=== PATIENT | female | born 2000 | race Native Hawaiian/Other Pacific Islander ===

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

== ENCOUNTER → 2020-04-05 | Outpatient (CLI) | payer OTHER, SELFPAY ==
[~2020-04-05] MED LIST changes: +ACET-683 PO; +MACR100C43 PO
[2020-04-05 13:18] LABS: HEMATOCRIT 43.2 % (36.0-47.0); MEAN CORPUSCULAR HEMOGLOBIN 28.7 pg (27.0-33.0); MEAN CORPUSCULAR HGB CONC 32.4 g/dl (32.0-36.5); MEAN CORPUSCULAR VOLUME 88.7 fl (80.0-96.0); PLATELET COUNT, AUTOMATED 279 10^3/uL (150-450); RED BLOOD COUNT 4.87 10^6/uL (4.00-5.40); WHITE BLOOD COUNT 6.5 10^3/uL (4.0-10.0)
[2020-04-05 13:36] LABS: HEMOGLOBIN A1c 5.4 %
[2020-04-05 14:42] LABS: ALBUMIN 3.7 GM/DL (3.2-5.2); ALT/SGPT 30 U/L (12-78); BILIRUBIN,TOTAL 0.4 MG/DL (0.2-1.0); BLOOD UREA NITROGEN 7 MG/DL (7-18); CARBON DIOXIDE LEVEL 23 MEQ/L (21-32); CHLORIDE LEVEL 105 MEQ/L (98-107); CHOLESTEROL LEVEL 151 MG/DL (<200); CREATININE FOR GFR 0.55 MG/DL (0.55-1.30); FREE T4 1.08 NG/DL (0.78-1.33); GLUCOSE, FASTING 81 MG/DL (70-100); HDL CHOLESTEROL 50 MG/DL (>40); LDL CHOLESTEROL 87 MG/DL (<100); NON-HDL-C 101 MG/DL; POTASSIUM SERUM 4.2 MEQ/L (3.5-5.1); SODIUM LEVEL 136 MEQ/L (136-145); TOTAL PROTEIN 7.4 GM/DL (6.4-8.2); TRIGLYCERIDES LEVEL 72 MG/DL (<150)
[2020-04-05 15:36] LABS: TOTAL 25(OH) VITAMIN D 27.2 NG/ML (30.0-100.0)
== END ==
LOC: M WUC 09:33
PROVIDERS: ATTEND Nurse Practitioner Family
DX: Z00.00 Encounter for general adult medical examination without abnormal findings (principal); Z83.3 Family history of diabetes mellitus; Z13.0 Encounter for screening for diseases of the blood and blood-forming organs and certain disorders involving the immune mechanism; Z83.49 Family history of other endocrine, nutritional and metabolic diseases

== ENCOUNTER 2020-05-10 11:04 | Emergency (ER) | payer OTHER, SELFPAY ==
[~2020-05-10] VITALS: Ht 157.5 cm; Wt 80.5 kg
[2020-05-10] MEDS ORDERED: NITROFURANTOIN (MACROBID) 100 MG CAP PO ONE (13:15)
[2020-05-10] MEDS ORDERED: PHENAZOPYRIDINE 100 MG TAB PO ONE (13:15)
[2020-05-10] MEDS ORDERED: MACR100C43 PO (13:16)
[2020-05-10] MEDS ORDERED: PYRI1TAB5 PO (13:16)
[2020-05-10 13:35] VITALS: BP 131/68
[2020-05-10 15:14] LABS: CHLAMYDIA DNA AMPLIFICATION NEGATIVE (NEGATIVE); GC DNA AMPLIFICATION NEGATIVE (NEGATIVE)
== END 2020-05-10 13:37 | disposition home or self-care (01) ==
LOC: M ED 11:04
DX: N39.0 Urinary tract infection, site not specified (principal); Z88.8 Allergy status to other drugs, medicaments and biological substances; Z88.1 Allergy status to other antibiotic agents

== ENCOUNTER 2020-11-22 04:32 | Emergency (ER) | payer OTHER ==
[~2020-11-22] VITALS: Ht 157.5 cm; Wt 84.0 kg
[~2020-11-22 04:32] MED LIST changes: +PYRI1TAB5 PO
[2020-11-22 05:48] LABS: APPEARANCE, URINE CLEAR (CLEAR); BACTERIA, URINE AUTO NEGATIVE (NEGATIVE); BILIRUBIN, URINE AUTO NEGATIVE (NEGATIVE); BLOOD, URINE BLOOD 3+ (NEGATIVE); COLOR, URINE COLORLESS (YELLOW); GLUCOSE, URINE (UA) AUTO NEGATIVE (NEGATIVE); KETONE, URINE AUTO NEGATIVE (NEGATIVE); LEUKOCYTE ESTERASE, URINE AUTO TRACE (NEGATIVE); NITRITE, URINE AUTO NEGATIVE (NEGATIVE); PROTEIN, URINE AUTO NEGATIVE (NEGATIVE); RBC, URINE AUTO 0 /HPF (0-3); SQUAMOUS EPITHELIAL CELL UR AU 0 /HPF (0-6); UROBILINOGEN, URINE AUTO 0.2 mg/dL (0.0-2.0); WBC, URINE AUTO 0 /HPF (0-3)
--- NOTE | 2020-11-22 06:27 | REPVR ---
PROCEDURE INFORMATION: Exam: US First Trimester, Transabdominal Exam date and time: 11/22/2020 5:28 AM Age: 20 years old Clinical indication: Lmp or gestational age (in weeks): 12wks; Other: Vag bleeding; ; Additional info: Vaginal bleeding TECHNIQUE: Imaging protocol: Real-time transabdominal obstetrical ultrasound of the maternal pelvis and a first trimester , less than 14 weeks 0 days, with image documentation. COMPARISON: No relevant prior studies available. FINDINGS: Gestation: Intrauterine gestational sac is seen with pole detected with crown-rump length 5.9 cm corresponding to 12 weeks and 3 days gestation. Embryonic/ heart rate: heart rate is detected at 165 beats per minutes. Extra-embryonic membranes/Placenta: Anterior grade 0 placenta is noted. Placenta previa is noted. Amniotic fluid: Amniotic fluid is normal for gestational age. BIOMETRY: Gestational age (AUA): 12 weeks and 3 days gestation by CRL. MATERNAL: Uterus: Unremarkable. Cervix: Unremarkable. Right adnexa: The right ovary and adnexa are obscured. Left adnexa: The left ovary and adnexa are obscured. Intraperitoneal space: No intraperitoneal free fluid. IMPRESSION: 1. Single live IUP corresponding to 12 weeks and 3 days gestation by CRL. 2. Placenta previa noted with no retroplacental hemorrhage or abruption. The previa is likely due to early . Follow-up is suggested. Electronically signed by: Renzo Rm On 11/22/2020 06:26:08 AM
[2020-11-22 07:00] VITALS: BP 117/72
== END 2020-11-22 07:02 | disposition home or self-care (01) ==
LOC: M ED 04:32
DX: O44.21 Partial placenta previa NOS or without hemorrhage, first trimester (principal); Z3A.12 12 weeks gestation of pregnancy; O26.852 Spotting complicating pregnancy, second trimester; Z88.6 Allergy status to analgesic agent; Z88.8 Allergy status to other drugs, medicaments and biological substances

== ENCOUNTER → 2020-12-03 | Outpatient (CLI) | payer OTHER ==
[2020-12-03 14:14] LABS: HEMATOCRIT 39.4 % (36.0-47.0); HEMOGLOBIN 13.4 g/dl (12.0-15.5); MEAN CORPUSCULAR HEMOGLOBIN 30.3 pg (27.0-33.0); MEAN CORPUSCULAR VOLUME 89.1 fl (80.0-96.0); PLATELET COUNT, AUTOMATED 273 10^3/uL (150-450); RED BLOOD COUNT 4.42 10^6/uL (4.00-5.40); WHITE BLOOD COUNT 7.4 10^3/uL (4.0-10.0)
[2020-12-03 14:44] LABS: HEMOGLOBIN A1c 5.1 %
[2020-12-03 15:02] LABS: FREE T4 0.95 NG/DL (0.78-1.33)
[2020-12-03 15:38] LABS: HEPATITIS C VIRUS ABY INDEX 0.1 INDEX (<0.8)
[2020-12-03 15:39] LABS: HIV 1&2 SCREEN CENTAUR NEGATIVE (NEGATIVE)
[2020-12-03 15:44] LABS: GC DNA AMPLIFICATION NEGATIVE (NEGATIVE)
== END ==
LOC: EEVIPCON 11:15 → M WUC 11:15
PROVIDERS: ATTEND Advanced Practice Midwife
DX: Z34.91 Encounter for supervision of normal pregnancy, unspecified, first trimester (principal); Z3A.08 8 weeks gestation of pregnancy

== ENCOUNTER → 2021-01-02 | Outpatient (REF) | payer OTHER | LOC: M SFHCWAGY 12:59 | PROVIDERS: ATTEND Advanced Practice Midwife | DX: Z34.82 Encounter for supervision of other normal pregnancy, second trimester (principal) ==

== ENCOUNTER → 2021-01-30 | Outpatient (CLI) | payer OTHER ==
--- NOTE | 2021-01-30 11:20 | REP ---
INDICATION: ANATOMY COMPARISON: 11/22/2020 TECHNIQUE: Transabdominal obstetrical ultrasound with color Doppler evaluation. FINDINGS: Examination demonstrates a single live intrauterine in variable presentation. motion is identified by technologist. Placenta is noted anterior and grade 0 without evidence for placenta previa or abruption. Amniotic fluid volume is normal. Cervix measures 3.4 cm in length and appears closed.. Selected gestational age: 20 weeks 6 days with MAE 06/13/2021. Gestational age by current measurements 21 weeks 4 days with MAE 06/08/2021. FHR equals 165 beats per minute. BPD: 5.3 cm at 22 weeks 2 days HC: 19.7 cm at 21 weeks 6 days AC: 16.2 cm at 21 weeks 2 days FL: 3.5 cm at 21 weeks 0 days HL: 3.3 cm at 21 weeks 2 days HC/AC: 1.22 Estimated weight 412 grams (68thpercentile). Anatomical assessment demonstrates normal structures including cranium, choroid plexus, cavum, cerebellum/posterior fossa, lungs, diaphragm, stomach, cord insertion/three-vessel cord, kidneys/bladder, spine, and extremities. Limited evaluation of the facial profile and heart/ventricular outflow tracts due to positioning. IMPRESSION: Single live intrauterine in transverse lie demonstrating appropriate interval growth and estimated weight. Anatomical limitations as noted above warrant re-evaluation and follow-up. <Electronically signed by Brandon Antunez > 01/30/21 [id number]
== END ==
LOC: M WHC 10:05
PROVIDERS: ATTEND Advanced Practice Midwife
DX: Z34.82 Encounter for supervision of other normal pregnancy, second trimester (principal); Z3A.16 16 weeks gestation of pregnancy

== ENCOUNTER → 2021-02-14 | Outpatient (CLI) | payer OTHER | LOC: M PLALAB 08:40 | PROVIDERS: ATTEND Advanced Practice Midwife | DX: Z34.82 Encounter for supervision of other normal pregnancy, second trimester (principal); Z3A.00 Weeks of gestation of pregnancy not specified ==

== ENCOUNTER → 2021-02-27 | Outpatient (CLI) | payer OTHER ==
--- NOTE | 2021-02-27 08:15 | REP ---
INDICATION: F/U ANATOMY R/O VASA PREVIA COMPARISON: 01/30/2021 TECHNIQUE: Transabdominal obstetrical ultrasound with color Doppler evaluation. FINDINGS: Examination demonstrates a single live intrauterine in breech presentation. motion is identified by technologist. Placenta is noted anterior and grade 1 without evidence for placenta previa or abruption. Amniotic fluid volume is normal. Cervix measures 3.7 cm in length and appears closed.. Selected gestational age: 24 weeks 6 days with MAE 06/13/2021. Gestational age by current measurements 25 weeks 5 days with MAE 06/07/2021. FHR equals 155 beats per minute. Estimated weight 823 grams (68thpercentile). Anatomical assessment demonstrates normal structures including cranium facial profile, four-chamber heart and cardiac ventricular outflow tracts. IMPRESSION: Single live intrauterine in breech presentation demonstrating appropriate estimated weight. In conjunction with prior examination anatomical assessment is complete and normal. <Electronically signed by Brandon Antunez > 02/27/21 [id number]
== END ==
LOC: M WHC 07:10
PROVIDERS: ATTEND Advanced Practice Midwife
DX: Z34.92 Encounter for supervision of normal pregnancy, unspecified, second trimester (principal); Z3A.24 24 weeks gestation of pregnancy

== ENCOUNTER → 2021-02-27 | Outpatient (REF) | payer OTHER | LOC: M SFHCWAGY 13:17 | PROVIDERS: ATTEND Specialist | DX: N39.0 Urinary tract infection, site not specified (principal) ==

== ENCOUNTER → 2021-03-27 | Outpatient (REF) | payer OTHER | LOC: M SFHCWAGY 13:06 | PROVIDERS: ATTEND Specialist | DX: N39.0 Urinary tract infection, site not specified (principal) ==

== ENCOUNTER → 2021-04-10 | Outpatient (CLI) | payer OTHER ==
[2021-04-10 13:40] LABS: HEMATOCRIT 36.7 % (36.0-47.0); HEMOGLOBIN 12.2 g/dl (12.0-15.5); MEAN CORPUSCULAR HEMOGLOBIN 29.9 pg (27.0-33.0); MEAN CORPUSCULAR HGB CONC 33.2 g/dl (32.0-36.5); PLATELET COUNT, AUTOMATED 272 10^3/uL (150-450); RED BLOOD COUNT 4.08 10^6/uL (4.00-5.40); WHITE BLOOD COUNT 10.6 10^3/uL (4.0-10.0)
[2021-04-10 15:38] LABS: GC DNA AMPLIFICATION NEGATIVE (NEGATIVE)
== END ==
LOC: M PLALAB 09:34
PROVIDERS: ATTEND Specialist
DX: Z34.82 Encounter for supervision of other normal pregnancy, second trimester (principal)

== ENCOUNTER 2021-04-15 12:36 | Outpatient (CLI) | payer OTHER ==
[~2021-04-15] VITALS: Ht 157.5 cm; Wt 85.5 kg
[2021-04-15] MEDS ORDERED: GENTAMICIN 425 MG in D5W 100 ML IV ONE (13:00)
[2021-04-15 13:14] VITALS: BP 133/73
[2021-04-15 15:00] VITALS: BP 128/59
== END 2021-04-15 15:05 | disposition home or self-care (01) ==
LOC: M INFU 12:36
PROVIDERS: ATTEND Advanced Practice Midwife
DX: N10 Acute pyelonephritis (principal)
CPT/HCPCS: 96365; J1580

== ENCOUNTER 2021-04-16 13:15 | Outpatient (CLI) | payer OTHER ==
[~2021-04-16] VITALS: Ht 160 cm; Wt 85.5 kg
[~2021-04-16 13:15] MED LIST changes: +GENTAMICIN 425 MG in D5W 100 ML IV ONE
[2021-04-16 13:43] VITALS: BP 128/58
== END 2021-04-16 15:00 | disposition home or self-care (01) ==
LOC: M INFU 13:15
PROVIDERS: ATTEND Advanced Practice Midwife
DX: N10 Acute pyelonephritis (principal); Z88.1 Allergy status to other antibiotic agents
CPT/HCPCS: 96365; J1580

== ENCOUNTER → 2021-04-29 | Outpatient (REF) | payer OTHER ==
[~2021-04-29] MED LIST changes: -GENTAMICIN 425 MG in D5W 100 ML IV ONE; +IBUP-1022 PO; +PERCOCET PO; +STUACAP PO
== END ==
LOC: M SFHCWAGY 15:25
PROVIDERS: ATTEND Obstetrics & Gynecology
DX: R82.71 Bacteriuria (principal)

== ENCOUNTER → 2021-05-21 | Outpatient (REF) | payer OTHER ==
[~2021-05-21] MED LIST changes: -IBUP-1022 PO; -PERCOCET PO; -STUACAP PO
== END ==
LOC: M SFHCWAGY 12:43
PROVIDERS: ATTEND Advanced Practice Midwife
DX: Z34.83 Encounter for supervision of other normal pregnancy, third trimester (principal); Z3A.00 Weeks of gestation of pregnancy not specified

== ENCOUNTER 2021-06-20 09:43 | Inpatient (IN) | payer OTHER ==
[2021-06-20] VITALS (29 sets, daily range): BP systolic 108–144; BP diastolic 60–95
[~2021-06-20] VITALS: Ht 160 cm; Wt 93.9 kg
[2021-06-20] MEDS ORDERED: STUACAP PO (10:06)
[2021-06-20] MEDS ORDERED: HOME MED LIST COMPLETE! XX SCH (10:10)
[2021-06-20] MEDS ORDERED: METHYLERGONOVINE MALEATE 0.2 MG/ML VIAL (J2210) IM PRN (10:25)
[2021-06-20] MEDS ORDERED: LACTATED RINGER'S 1000 ML IV STA (10:25)
[2021-06-20] MEDS ORDERED: TRANEXAMIC ACID INJection 1,000 MG in NS 100 ML IV PRN (10:25)
[2021-06-20] MEDS ORDERED: CARBOPROST TROMETHAMINE 250 MCG/ML AMP IM PRN (10:25)
[2021-06-20] MEDS ORDERED: OXYTOCIN DRIP 30 UNITS in IV 1 EA IV PRN ×4 (10:25)
[2021-06-20] MEDS ORDERED: OXYTOCIN DRIP 30 UNITS in IV 1 EA IV SCH (10:25)
[2021-06-20 11:14] LABS: HEMATOCRIT 35.6 % (36.0-47.0); HEMOGLOBIN 11.8 g/dl (12.0-15.5); MEAN CORPUSCULAR HEMOGLOBIN 28.7 pg (27.0-33.0); MEAN CORPUSCULAR HGB CONC 33.1 g/dl (32.0-36.5); MEAN CORPUSCULAR VOLUME 86.6 fl (80.0-96.0); PLATELET COUNT, AUTOMATED 232 10^3/uL (150-450); RED BLOOD COUNT 4.11 10^6/uL (4.00-5.40); WHITE BLOOD COUNT 8.8 10^3/uL (4.0-10.0)
[2021-06-20 11:41] LABS: ALT/SGPT 14 U/L (12-78); BILIRUBIN,TOTAL 0.1 MG/DL (0.2-1.0); CREATININE FOR GFR 0.42 MG/DL (0.55-1.30); GLOMERULAR FILTRATION RATE > 60.0 (>60); LDH LACTATE DEHYDROGENASE 148 U/L (84-246); URIC ACID 4.6 MG/DL (2.6-6.0)
[2021-06-20] MEDS: LR 1,000 ML IV SCH ×3 (14:23→20:31)
[2021-06-20] MEDS ORDERED: FENTANYL 2MCG/ML ROPIVACAINE 0.2% IN 0.9% NACL 100ML IVBAG As Ordered ONE (19:18)
[2021-06-20] MEDS ORDERED: EPIDURAL/PCA KEYS XX PRN (20:15)
[2021-06-20] MEDS ORDERED: diphenhydrAMINE 50MG/ML VIAL (J1200) IV PRN (20:15)
[2021-06-20] MEDS ORDERED: NALOXONE INJ 0.4MG/1ML VIAL (J2310 PER 1MG) IV PRN (20:15)
[2021-06-20] MEDS ORDERED: ePHEDrine SULFATE 25 MG/5 ML(5MG/ML) SYRINGE IV PRN (20:15)
[2021-06-20] MEDS ORDERED: ONDANSETRON 4MG/2ML VIAL IV PRN (20:15)
[2021-06-20] MEDS ORDERED: EPIDURAL COMMENT XX SCH (20:15)
[2021-06-20] MEDS ORDERED: LACTATED RINGER'S 1000 ML IV PRN (20:15)
[2021-06-20] MEDS ORDERED: REFRIGERATOR IV KEYS XX PRN (20:15)
[2021-06-20] MEDS ORDERED: FENTANYL/ROPIVACAINE/NACL BAG 100 ML EPIDURAL SCH (20:15)
[2021-06-20] MEDS ORDERED: BICITRA 30ML SOLN UDC As Ordered ONE (23:31)
[2021-06-20] MEDS ORDERED: ceFAZolin 2 GM/D5W 50 ML IV BAG (J0690 PER 500MG) As Ordered ONE (23:32)
[2021-06-20] MEDS ORDERED: AZITHROMYCIN INJ 500MG VIAL As Ordered ONE (23:36)
[2021-06-21] VITALS (29 sets, daily range): BP systolic 97–150; BP diastolic 48–96
[2021-06-21] MEDS ORDERED: CLINDAMYCIN 900 MG in IV 1 EA IV ONE ×2
[2021-06-21] MEDS ORDERED: GENTAMICIN 400 MG in D5W 100 ML IV ONE ×2
[2021-06-21] MEDS ORDERED: OXYTOCIN 30 UNITS IN 0.9% NaCl 500ML IV BAG (J2590) As Ordered ONE ×3 (00:29→01:34)
[2021-06-21] MEDS ORDERED: KETOROLAC 60MG 2ML VIAL As Ordered ONE (00:29)
[2021-06-21] MEDS ORDERED: MORPHINE PRES-FREE INJ 10 MG/10 ML VIAL (J2274) As Ordered ONE (00:29)
[2021-06-21] MEDS ORDERED: SODIUM BICARBONATE 8.4% INJ 50MEQ 50 ML VIAL As Ordered ONE (00:29)
[2021-06-21] MEDS ORDERED: ONDANSETRON 4MG/2ML VIAL As Ordered ONE ×2 (00:29→01:20)
[2021-06-21] MEDS ORDERED: LIDOCAINE 2% W/EPINEPHRINE 20ML VIAL **PRES FREE As Ordered ONE (00:29)
[2021-06-21] MEDS ORDERED: ACETAMINOPHEN 1000MG 100ML IV BTL (OFIRMEV) (J0131 PER 10MG) As Ordered ONE (00:29)
[2021-06-21] MEDS ORDERED: dexameTHASONE 4 MG/ML 1ML VIAL (J1100 PER 1MG) As Ordered ONE (00:29)
[2021-06-21] MEDS ORDERED: PHENYLephrine 500MCG 5ML (100MCG/ML) SYRINGE As Ordered ONE (00:38)
[2021-06-21] MEDS ORDERED: PHENYLEPHRINE 10MG/ML 1ML VIAL (J2370 PER 1) As Ordered ONE (00:56)
[2021-06-21] MEDS ORDERED: ONDANSETRON 4MG/2ML VIAL IV PRN ×3 (01:15→02:05)
[2021-06-21] MEDS ORDERED: METOCLOPRAMIDE INJ 10MG/2ML VIAL (J2765 PER 1) IV PRN (01:15)
[2021-06-21] MEDS ORDERED: NALOXONE INJ 0.4MG/1ML VIAL (J2310 PER 1MG) IV PRN ×3 (01:15→02:05)
[2021-06-21] MEDS ORDERED: diphenhydrAMINE 50MG/ML VIAL (J1200) IV PRN ×2 (01:15→02:05)
[2021-06-21] MEDS ORDERED: NALBUPHINE HCL 10 MG/ML AMP (J2300) IV PRN (01:15)
[2021-06-21] MEDS ORDERED: METOCLOPRAMIDE INJ 10MG/2ML VIAL (J2765 PER 1) As Ordered ONE (01:19)
[2021-06-21] MEDS ORDERED: fentaNYL 100 MCG/2 ML INJECTION (J3010) IV PRN (01:45)
[2021-06-21] MEDS ORDERED: LR 1,000 ML IV SCH (01:45)
[2021-06-21] MEDS ORDERED: PERCOCET 5MG/325MG TAB PO PRN ×3 (01:45→11:20)
[2021-06-21] MEDS ORDERED: IBUPROFEN 600MG TAB PO SCH (02:00)
[2021-06-21] MEDS ORDERED: RHOGAM 300 MCG (1500 IU) INJ (J2790) IM SCH (02:00)
[2021-06-21] MEDS ORDERED: ACETAMINOPHEN 500 MG TAB PO SCH (02:00)
[2021-06-21] MEDS ORDERED: MEASLES,MUMPS,RUBELLA VACCINE INJ (MMR-II) (90707) SC SCH (02:00)
[2021-06-21] MEDS ORDERED: OXYTOCIN DRIP 30 UNITS in IV 1 EA IV SCH (02:00)
[2021-06-21] MEDS ORDERED: SIMETHICONE 80MG CHEW TAB PO PRN (02:00)
[2021-06-21] MEDS ORDERED: NS 1,000 ML IV SCH (02:05)
[2021-06-21] MEDS ORDERED: MORPHINE 1MG/ML IN 0.9% NACL 100ML IV BAG IV PRN (02:05)
[2021-06-21] MEDS ORDERED: EPIDURAL/PCA KEYS XX PRN (02:05)
[2021-06-21] MEDS ORDERED: TRANEXAMIC ACID 100 MG/ML 10ML VIAL As Ordered ONE (02:42)
[2021-06-21 02:49] LABS: HEMATOCRIT 33.3 % (36.0-47.0); HEMOGLOBIN 10.7 g/dl (12.0-15.5); MEAN CORPUSCULAR HEMOGLOBIN 28.6 pg (27.0-33.0); MEAN CORPUSCULAR HGB CONC 32.1 g/dl (32.0-36.5); PLATELET COUNT, AUTOMATED 167 10^3/uL (150-450); RED BLOOD COUNT 3.74 10^6/uL (4.00-5.40); WHITE BLOOD COUNT 20.1 10^3/uL (4.0-10.0)
[2021-06-21] MEDS ORDERED: LOPERAMIDE 2 MG CAPLET PO PRN (03:40)
[2021-06-21] MEDS ORDERED: fentaNYL 100 MCG/2 ML INJECTION (J3010) As Ordered ONE (04:10)
[2021-06-21] MEDS: ACETAMINOPHEN 500 MG TAB PO SCH ×3 (06:14→17:55)
[2021-06-21] MEDS: PRENATAL VITAMINS CHEWABLE TABLET PO SCH (09:03)
[2021-06-21] MEDS: IBUPROFEN 600MG TAB PO SCH ×3 (09:04→21:05)
[2021-06-21] MEDS ORDERED: CARBOPROST TROMETHAMINE 250 MCG/ML AMP ONE (10:59)
[2021-06-21] MEDS ORDERED: METHYLERGONOVINE MALEATE 0.2 MG/ML VIAL (J2210) ONE (10:59)
[2021-06-22] MEDS: ACETAMINOPHEN 500 MG TAB PO SCH ×4 (00:05→17:51)
[2021-06-22 02:00] VITALS: BP 130/72
[2021-06-22] MEDS: IBUPROFEN 600MG TAB PO SCH ×4 (03:06→21:12)
[2021-06-22 06:00] VITALS: BP 138/64
[2021-06-22] MEDS: PRENATAL VITAMINS CHEWABLE TABLET PO SCH (08:18)
[2021-06-22 08:34] LABS: HEMATOCRIT 32.5 % (36.0-47.0); HEMOGLOBIN 10.6 g/dl (12.0-15.5); MEAN CORPUSCULAR HEMOGLOBIN 28.5 pg (27.0-33.0); MEAN CORPUSCULAR HGB CONC 32.6 g/dl (32.0-36.5); MEAN CORPUSCULAR VOLUME 87.4 fl (80.0-96.0); PLATELET COUNT, AUTOMATED 172 10^3/uL (150-450); RED BLOOD COUNT 3.72 10^6/uL (4.00-5.40); WHITE BLOOD COUNT 15.5 10^3/uL (4.0-10.0)
[2021-06-22 10:03] VITALS: BP 103/54
[2021-06-22 14:00] VITALS: BP 121/73
[2021-06-22] MEDS ORDERED: DOCUSATE SODIUM 100MG CAPSULE PO PRN (17:30)
[2021-06-22 18:00] VITALS: BP 118/58
[2021-06-22 22:00] VITALS: BP 133/83
[2021-06-23] MEDS: IBUPROFEN 600MG TAB PO SCH ×3 (03:00→15:06)
[2021-06-23] MEDS: ACETAMINOPHEN 500 MG TAB PO SCH ×3 (05:08→12:17)
[2021-06-23 06:00] VITALS: BP 116/63
[2021-06-23] MEDS: PRENATAL VITAMINS CHEWABLE TABLET PO SCH (07:58)
[2021-06-23] MEDS ORDERED: IBUP-1022 PO (15:18)
[2021-06-23] MEDS ORDERED: PERCOCET PO (15:18)
== END 2021-06-23 16:00 | disposition home or self-care (01) | DRG 540 ==
LOC: M LDI 09:43 → M OBS 06-21 06:01
PROVIDERS: ADMIT Obstetrics & Gynecology; ATTEND Obstetrics & Gynecology
PROC: 3E033VJ Introduction of Other Hormone into Peripheral Vein, Percutaneous Approach (ICD-10-PCS; 2021-06-20)
PROC: 04LE0ZT Occlusion of Right Uterine Artery, Open Approach (ICD-10-PCS; 2021-06-20)
PROC: 30233N1 Transfusion of Nonautologous Red Blood Cells into Peripheral Vein, Percutaneous Approach (ICD-10-PCS; 2021-06-21)
PROC: 10D00Z1 Extraction of Products of Conception, Low, Open Approach (ICD-10-PCS; principal; 2021-06-21 00:26)
DX: O48.0 Post-term pregnancy (principal); O40.3XX0 Polyhydramnios, third trimester, not applicable or unspecified; O72.1 Other immediate postpartum hemorrhage; Z37.0 Single live birth; Z3A.41 41 weeks gestation of pregnancy; O32.4XX0 Maternal care for high head at term, not applicable or unspecified

== ENCOUNTER 2021-08-13 15:40 | Emergency (ER) | payer OTHER ==
[~2021-08-13] VITALS: Ht 157.5 cm; Wt 81.8 kg
[~2021-08-13 15:40] MED LIST changes: +IBUP-1022 PO; +PERCOCET PO; +STUACAP PO
[2021-08-13] MEDS ORDERED: CENTCHW4 PO (15:59)
[2021-08-13 16:43] LABS: BASO % 0.5 % (0.0-1.0); EOS # 0.1 10^3/uL (0.0-0.5); EOS % 2.3 % (0.0-3.0); HEMATOCRIT 39.5 % (36.0-47.0); HEMOGLOBIN 12.9 g/dl (12.0-15.5); LYMPH # 1.9 10^3/uL (1.5-5.0); LYMPH % 31.1 % (24.0-44.0); MEAN CORPUSCULAR HEMOGLOBIN 27.7 pg (27.0-33.0); MEAN CORPUSCULAR HGB CONC 32.7 g/dl (32.0-36.5); MEAN CORPUSCULAR VOLUME 84.8 fl (80.0-96.0); MONO # 0.4 10^3/uL (0.0-0.8); MONO % 6.3 % (2.0-8.0); NEUTROPHILS # 3.6 10^3/uL (1.5-8.5); NEUTROPHILS % 59.6 % (36.0-66.0); PLATELET COUNT, AUTOMATED 319 10^3/uL (150-450); RED BLOOD COUNT 4.66 10^6/uL (4.00-5.40)
[2021-08-13 17:10] LABS: ALBUMIN 4.1 GM/DL (3.2-5.2); ALT/SGPT 62 U/L (12-78); BILIRUBIN,TOTAL 0.3 MG/DL (0.2-1.0); BLOOD UREA NITROGEN 7 MG/DL (7-18); CALCIUM LEVEL 9.5 MG/DL (8.5-10.1); CARBON DIOXIDE LEVEL 30 MEQ/L (21-32); CHLORIDE LEVEL 108 MEQ/L (98-107); CREATININE FOR GFR 0.68 MG/DL (0.55-1.30); GLOMERULAR FILTRATION RATE > 60.0 (>60); GLUCOSE, FASTING 87 MG/DL (70-100); SODIUM LEVEL 140 MEQ/L (136-145); TOTAL PROTEIN 8.2 GM/DL (6.4-8.2)
[2021-08-13 19:49] VITALS: BP 110/71
[2021-08-13 20:44] LABS: GC DNA AMPLIFICATION NEGATIVE (NEGATIVE)
== END 2021-08-13 20:07 | disposition home or self-care (01) ==
LOC: M ED 15:40
DX: N92.6 Irregular menstruation, unspecified (principal); Z88.1 Allergy status to other antibiotic agents; Z88.5 Allergy status to narcotic agent; Z87.448 Personal history of other diseases of urinary system

== ENCOUNTER 2022-03-27 04:53 | Emergency (ER) | payer OTHER ==
[~2022-03-27] VITALS: Ht 160 cm; Wt 73.6 kg
[2022-03-27 07:12] LABS: URINE PREG TEST NEGATIVE (NEGATIVE)
[2022-03-27] MEDS ORDERED: NITR1CAP11 PO (07:20)
[2022-03-27] MEDS ORDERED: NITROFURANTOIN (MACROBID) 100 MG CAP PO ONE (07:20)
[2022-03-27] MEDS ORDERED: PHEN-372 PO (07:20)
[2022-03-27] MEDS ORDERED: PHENAZOPYRIDINE 100 MG TAB PO ONE (07:20)
[2022-03-27] MEDS ORDERED: IBUPROFEN 600MG TAB PO ONE (07:20)
[2022-03-27 08:15] VITALS: BP 122/74
[2022-03-27 08:45] LABS: GC DNA AMPLIFICATION NEGATIVE (NEGATIVE)
== END 2022-03-27 08:20 | disposition home or self-care (01) ==
LOC: M ED 04:53
DX: N39.0 Urinary tract infection, site not specified (principal); Z88.1 Allergy status to other antibiotic agents; Z88.5 Allergy status to narcotic agent; Z79.899 Other long term (current) drug therapy